=== PATIENT | male | born 1975 | race Two or more races ===

== ENCOUNTER 2020-12-13 14:25 | Outpatient (REF) | payer OTHER, SELFPAY ==
[2020-12-13 14:59] LABS: MANUAL DIFF FLAG NO
[2020-12-13 15:03] LABS: Basophils Percent Auto 0.2 % (0-2); Eosinophils Absolute Auto 0.2 X10*3/uL (0.0-0.4); Eosinophils Percent Auto 1.9 % (0-4); Hematocrit 37.5 % (42-52); Hemoglobin 11.9 g/dl (14.0-18.0); Imm Gran Abs Auto 0.02 X10*3/uL (0.00-0.03); Imm Gran Pct Auto 0.2 % (0.0-0.4); Lymphocytes Absolute Auto 2.2 X10*3/uL (1.2-4.9); Lymphocytes Percent Auto 22.9 % (20-40); Mean Corpuscular HGB Conc 31.7 g/dl (31.0-36.0); Mean Corpuscular Volume 88.2 fL (80-98); Mean Platelet Volume 8.7 fL (9.4-12.4); Monocytes Absolute Auto 0.7 X10*3/uL (0.1-1.2); Monocytes Percent Auto 7.7 % (2-11); Neutrophils Absolute Auto 6.3 X10*3/uL (2.0-8.3); Neutrophils Percent Auto 67.1 % (45-73); Platelet Count 444 X10*3/uL (160-400); Red Blood Count 4.25 X10*6/uL (4.60-5.80); Red Cell Distribution Width 13.4 % (11.0-16.0); White Blood Count 9.4 X10*3/uL (4.8-10.8)
[2020-12-13 17:38] LABS: Alanine Aminotransferase 23 U/L (0-40); Albumin Level 4.3 g/dL (3.5-5.0); Alkaline Phosphatase 101 U/L (39-117); Anion Gap 13 (12-20); Aspartate Amino Transferase 17 U/L (5-37); Bilirubin Direct < 0.2 mg/dL (0.0-0.5); Bilirubin Total 0.2 mg/dL (0.0-1.0); Blood Urea Nitrogen 13 mg/dL (9-16); Calcium 9.3 mg/dL (8.4-10.2); Carbon Dioxide 29 mmol/L (22-29); Chloride 101 mmol/L (96-108); Cholesterol 136 mg/dL; Estimated Glomerular Filt Rate > 60; Glucose Random 91 mg/dL (60-115); HDL Cholesterol 42 mg/dL; LDL Cholesterol Calculated 68 mg/dl; Potassium 4.5 mmol/L (3.3-5.1); Sodium 138 mmol/L (135-145); Total Protein 7.5 g/dL (6.5-8.0); Triglycerides 131 mg/dL
[2020-12-13 17:41] LABS: Estimated Average Glucose 103 mg/dL; Hemoglobin A1c % 5.2 %
[2020-12-13 17:52] LABS: Free T4 (Free Thyroxine) 0.87 ng/dL (0.71-1.85); Prostate Specific Antigen 0.21 ng/mL (<0.05-4.0)
== END 2020-12-13 14:26 | disposition home or self-care (01) ==
LOC: HO.LAB 14:25
PROVIDERS: PCP Internal Medicine; Visit Provider Internal Medicine
DX: Z00.00 Encounter for general adult medical examination without abnormal findings (principal)
CPT/HCPCS: 36415; 80048; 80061; 80076; 83036; 84153; 84439; 84443; 85025

== ENCOUNTER 2023-06-17 16:22 | Outpatient (REF) | payer OTHER, SELFPAY ==
[2023-06-21 17:34] LABS: HIV RNA PCR Qn Copies Not Detected Copies/mL; HIV RNA PCR Qn Log Copies Not Detected Log cps/mL
== END 2023-06-17 16:23 | disposition home or self-care (01) ==
LOC: HO.CHCLDS 16:22
PROVIDERS: Visit Provider Internal Medicine
DX: Z00.00 Encounter for general adult medical examination without abnormal findings (principal); E78.5 Hyperlipidemia, unspecified; F20.0 Paranoid schizophrenia; E55.9 Vitamin D deficiency, unspecified
CPT/HCPCS: 36415; 80053; 80061; 83036; 84443; 85025; 86803; 87536; 87900

== ENCOUNTER 2024-05-28 22:16 | Emergency (ER) | payer OTHER, SELFPAY ==
[2024-05-28 22:23] VITALS: BP 130/72; PULSE 109; O2SAT 96
[2024-05-28 22:32] VITALS: BP 105/69; PULSE 75; RESP 16; TEMP 37.3; O2SAT 99; BMI 32.1
[2024-05-28 23:00] LABS: Appearance Urine Clear; Color Urine Yellow; Glucose Urine UA Negative (Negative); Leukocyte Esterase Urine Trace (Negative); Nitrite Urine Negative (Negative); PH 6.5 (5.0-9.0); UMIC TRIGGER UA YES; Urine Blood Trace (Negative); Urine Ketones Negative (Negative); Urine Protein Negative (Neg-Trace)
[2024-05-28 23:05] LABS: Bacteria Urine None Seen (None Seen); Hyaline Casts Urine 0-2 /LPF (0-2); Squamous Epithelial Cell Urine 0-2 /HPF (0-2); WBC Urine 0-5 /HPF (0-5)
[2024-05-28 23:10] LABS: Amphetamine Screen Urine Not Detected (Not Detect); Barbiturates, Urine Not Detected (Not Detect); Benzodiazepines Screen Urine Not Detected (Not Detect); Buprenorphine Scr Not Detected (Not Detect); Cannabinoid Screen Urine Not Detected (Not Detect); Cocaine Screen Urine Not Detected (Not Detect); Fentanyl, urine Not Detected (Not Detect); Methadone Screen, Urine Not Detected (Not Detect); Opiate Screen Urine Not Detected (Not Detect); Oxycodone Screen Urine Not Detected (Not Detect); Phencyclidine Screen Urine Not Detected (Not Detect)
[2024-05-28 23:34] LABS: MANUAL DIFF FLAG NO
[2024-05-28 23:36] LABS: Basophils Absolute Auto 0.1 X10*3/uL (0.0-0.2); Basophils Percent Auto 0.6 % (0-2); Eosinophils Absolute Auto 0.3 X10*3/uL (0.0-0.4); Eosinophils Percent Auto 2.4 % (0-4); Hematocrit 34.9 % (42.0-52.0); Imm Gran Abs Auto 0.02 X10*3/uL (0.00-0.03); Imm Gran Pct Auto 0.2 % (0.0-0.4); Lymphocytes Absolute Auto 2.3 X10*3/uL (1.2-4.9); Lymphocytes Percent Auto 21.3 % (20-40); Mean Corpuscular HGB Conc 34.4 g/dl (31.0-36.0); Mean Corpuscular Hemoglobin 29.1 pg (27.0-33.0); Mean Corpuscular Volume 84.7 fL (80.0-98.0); Mean Platelet Volume 7.8 fL (9.4-12.4); Monocytes Absolute Auto 0.7 X10*3/uL (0.1-1.2); Monocytes Percent Auto 6.1 % (2-11); Neutrophils Absolute Auto 7.5 x10*3/uL (2.0-8.3); Neutrophils Percent Auto 69.4 % (45-73); Platelet Count 443 X10*3/uL (160-400); Red Blood Count 4.12 X10*6/uL (4.60-5.80); Red Cell Distribution Width 13.8 % (11.0-16.0); White Blood Count 10.8 X10*3/uL (4.8-10.8)
[2024-05-28 23:50] LABS: COVID-19 Test Negative (Negative); IDNOW Serial# 152EDE1D
[2024-05-28 23:58] LABS: Alanine Aminotransferase 10 U/L (0-40); Albumin Level 4.1 g/dL (3.5-5.0); Alkaline Phosphatase 108 U/L (39-117); Anion Gap 13 (12-20); Aspartate Amino Transferase 13 U/L (5-37); Bilirubin Total 0.3 mg/dL (0.0-1.0); Blood Urea Nitrogen 3 mg/dL (9-16); Calcium 9.5 mg/dL (8.4-10.2); Carbon Dioxide 27 mmol/L (22-29); Chloride 100 mmol/L (96-108); Creatinine Clr Calc Pharmacy 178.1; Estimated Glomerular Filt Rate > 60; Ethanol < 10 mg/dL; Glucose Random 85 mg/dL (60-115); Sodium 136 mmol/L (135-145); Total Protein 7.9 g/dL (6.5-8.0)
[2024-05-29 05:16] VITALS: BP 108/55; PULSE 54; RESP 16; TEMP 37.2; O2SAT 100
[2024-05-29 06:08] LABS: CT PCR NOT DETECTED (Not Detect.); NG PCR NOT DETECTED (Not Detect.)
--- NOTE | 2024-05-29 06:34 | ED_ITS ---
HPI - Psych General Chief Complaint: Psychiatric Symptoms Stated Complaint: Hallucinations Time Seen by Provider: 05/29/24 02:35 Source: patient and EMS Mode of arrival: EMS Limitations: no limitations History of Present Illness ED Provider: Dr. Roy HPI Narrative: Patient brought in by EMS. He is having auditory and short visual hallucinations, Feels that people are invisible to him and that they are stealing other peoples organs. He is not suicidal or homicidal, has been taking his medications, but feels that there are voices in his head. He is also concerned about STDs Onset (ago): day(s) Related Data Allergies Allergy/AdvReac Type Severity Reaction Status Date / Time No Known Allergies Allergy Verified 05/28/24 22:35 Review of Systems 2 Review of Systems: Yes all other systems are reviewed and are negative Neurologic: Denies Sensory deficit (Neuro) [facility] Social History Social History Smoked in Last 30 Days: Yes Use of substances other than those prescribed or required for medical reasons: No Advance Directives: No Advance Directives Information Provided: Yes Do you have a plan to hurt others: No Plan Physical Exam 2 Vital Signs: Vital Signs: Last Vital Signs Temp 98.9 F 05/29/24 05:16 Pulse 54 05/29/24 05:16 Resp 16 05/29/24 05:16 BP 108/55 L 05/29/24 05:16 Pulse Ox 100 05/29/24 05:16 O2 Del Method Room Air 05/29/24 05:16 BMI result Body Mass Index 32.1 Const: General: healthy appearing Nutritional Appearance: average body habitus Orientation/consciousness: oriented to person and patient oriented x3 Limitations: no limitations HEENT: Head: Yes normal to inspection Ears: external ears normal General nose exam: Normal external nose present Mouth: Normal oral and palatal mucosa present and oropharynx normal Throat: Yes posterior oropharynx normal Eyes: General: appearance normal, both eyes and all related structures Neck: Other: supple Neck: Yes normal visual inspection Chest: Chest palpation & inspection: normal inspection of the chest Resp: Auscultation: clear to auscultation bilaterally Cardio: Jugular venous distension: no JVD Rate: regular rate Rhythm: r egular rhythm Heart sounds: S1 normal heart sound present and S2 normal heart sound present GI: Inspection: Yes normal to inspection Palpation (GI): Soft to palpation, nontender and No hepatosplenomegaly present Auscultation: normal bowel sounds : General: Yes no CVA tenderness Back/Spine/Pelvis: Back: no CVA tenderness Skin: General skin exam: no rashes or lesions noted Neuro: General: oriented to person and patient oriented x3 Cranial nerves: Yes CN's II-XII intact bilaterally Motor exam (neuro): 5/5 motor strength present throughout Sensory Exam: No Sensory deficit (Neuro) Extrem: General: Yes normal to inspection Psych: Other: paranoid but calm Course Reevaluation(s) Reevaluation #1: seen by crisis they will admit Time: 06:39 Medical Decision Making Differential Diagnosis Differential Diagnoses: The differential diagnosis associated with the presentation includes (paranoid schizophrenia, bipolar disorder) Admission/Observation Consideration of admission/observation: Escalation of care including admission/observation considered (upon arrival patient considered for admission) Consult Healthcare Provider Management of the patient was discussed with: Behavioral Health Provider Lab Data 05/28/24 23:27 05/28/24 23:27 Labs: Lab Results 05/28/24 05/28/24 05/29/24 Range/Units 22:46 23:27 04:35 WBC 10.8 (4.8-10.8) X10*3/uL RBC 4.12 L (4.60-5.80) X10*6/uL Hgb 12.0 L (14.0-18.0) g/dl Hct 34.9 L (42.0-52.0) % MCV 84.7 (80.0-98.0) fL MCH 29.1 (27.0-33.0) pg MCHC 34.4 (31.0-36.0) g/dl RDW 13.8 (11.0-16.0) % Plt Count 443 H (160-400) X10*3/uL MPV 7.8 L (9.4-12.4) fL Immature Gran % (Auto) 0.2 (0.0-0.4) % Neut % (Auto) 69.4 (45-73) % Lymph % (Auto) 21.3 (20-40) % [place] % (Auto) 6.1 (2-11) % Eos % (Auto) 2.4 (0-4) % Baso % (Auto) 0.6 (0-2) % Lymph # (Auto) 2.3 (1.2-4.9) X10*3/uL [place] # (Auto) 0.7 (0.1-1.2) X10*3/uL Eos # (Auto) 0.3 (0.0-0.4) X10*3/uL Baso # (Auto) 0.1 (0.0-0.2) X10*3/uL Abs Immat Gran (auto) 0.02 (0.00-0.03) X10*3/uL Absolute Neuts (auto) 7.5 (2.0-8.3) x10*3/uL Absolute Nucleated RBC 0.000 (0.0-0.012) X10*3/uL Nucleated RBC % (auto) 0.0 (0.0-0.2) /100WBC Sodium 136 (135-145) mmol/L Potassium 4.0 (3.3-5.1) mmol/L Chloride 100 (96-108) mmol/L Carbon Dioxide 27 (22-29) mmol/L Anion Gap 13 (12-20) BUN 3 L (9-16) mg/dL Creatinine 0.63 (0.5-1.4) mg/dL Estim Creat Clear Calc 178.1 Estimated GFR > 60 Random Glucose 85 (60-115) mg/dL Calcium 9.5 (8.4-10.2) mg/dL Total Bilirubin 0.3 (0.0-1.0) mg/dL AST 13 (5-37) U/L ALT 10 (0-40) U/L Alkaline Phosphatase 108 (39-117) U/L Total Protein 7.9 (6.5-8.0) g/dL Albumin 4.1 (3.5-5.0) g/dL Urine Color Yellow Urine Appearance Clear Urine pH 6.5 (5.0-9.0) Ur Specific [place] 1.010 (1.005-1.025) Urine Protein Negative (Neg-Trace) mg/dL Urine Glucose (UA) Negative (Negative) mg/dL Urine Ketones Negative (Negative) mg/dL Urine Blood Trace H (Negative) Urine Nitrite Negative (Negative) Ur Leukocyte Esterase Trace H (Negative) Urine RBC 3-5 H (0-2) /HPF Urine WBC 0-5 (0-5) /HPF Ur Squamous Epith Cells 0-2 (0-2) /HPF Urine Bacteria None Seen (None Seen) Hyaline Casts 0-2 (0-2) /LPF Urine Opiates Screen Not Detected (Not Detect) Ur Buprenorphine Scrn Not Detected (Not Detect) ng/mL Ur Oxycodone Screen Not Detected (Not Detect) ng/mL Urine Methadone Screen Not Detected (Not Detect) ng/mL Urine Fentanyl Screen Not Detected (Not Detect) Ur Barbiturates Screen Not Detected (Not Detect) Ur Phencyclidine Scrn Not Detected (Not Detect) Ur Amphetamines Screen Not Detected (Not Detect) U Benzodiazepines Scrn Not Detected (Not Detect) Urine Cocaine Screen Not Detected (Not Detect) U Marijuana (THC) Screen Not Detected (Not Detect) Ethyl Alcohol < 10 mg/dL Chlam trachomat DNA PCR NOT DETECTED (Not Detect.) COVID-19 (ANDREI) Negative (Negative) COVID-19 Clin Com See Note N.gonorrhoeae DNA (PCR) NOT DETECTED (Not Detect.) Independent Historian Clinical information obtained from an independent historian. History obtained from or confirmed by: EMS Chronic Conditions Patient?s care impacted by: Other (psychiatric illness) Social Determinants Patient?s care significantly limited by Social Determinants of Health including: Low income Discharge Plan Discharge Clinical Impression: Chronic schizophrenia, Acute psychosis Patient Disposition: Still a Patient Interventions: [place]-Suicide Risk Severity Scale Last Done: 05/28/24 22:36 Print Language: Yoruba
--- NOTE | 2024-05-29 09:13 | PC.NURSE ---
Call to [facility] apartment office, spoke to Astrid [phone], med list to be faxed Pt is calm and cooperative. Does not appear to be responding to internal stimuli. Ate breakfast. Plan for IPLOC
--- NOTE | 2024-05-29 09:31 | MHC.CARE ---
Anita Villalobos- Hat Forming Machine Feeder of the [facility] program where Pt resides returned a phone call from the overnight CARE team clinician who assessed Pt. She was informed Pt is IPLOC and a bed search is being conducted. Her phone number is [phone] for any collateral information or updates.
--- NOTE | 2024-05-29 10:02 | PC.NURSE ---
Med list received by [facility], faxed to pharmacy
--- NOTE | 2024-05-29 11:15 | PC.NURSE ---
Addendum entered by Sepideh Orourek 05/29/24 11:33: CARE team continuing to recommend IPLOC after obtaining collateral from [facility] child welfare caseworker, Sec [address]. Original Note: pt requesting discharge, reminded that he was on a sec 12 for IPLOC, pt stated he has had good behavior during his stay. care team notified of pt request.
[2024-05-29 14:04] VITALS: BP 104/54; PULSE 74; RESP 17; O2SAT 99
--- NOTE | 2024-05-29 14:50 | PHA.MEDREC ---
Pharmacy Consult ? Medication Reconciliation Pharmacy has completed the medication reconciliation.
--- NOTE | 2024-05-29 19:18 | PC.NURSE ---
patient appears to remain asleep/resting at present respirations are even and unlabored patient appears in no distress.
[2024-05-29] MEDS: Ibuprofen 800 MG TABLET PO (20:30)
[2024-05-29] MEDS: risperiDONE 2 MG TABLET 4 MG PO (20:30)
[2024-05-29] MEDS: OXcarbazepine 300 MG TABLET PO (20:30)
[2024-05-29] MEDS: risperiDONE 1 MG TABLET PO (20:30)
[2024-05-29 20:38] VITALS: BP 123/79; PULSE 86; RESP 16; TEMP 36.6; O2SAT 97
[2024-05-30 05:08] VITALS: BP 105/51; PULSE 64; RESP 16; TEMP 36.8; O2SAT 98
--- NOTE | 2024-05-30 07:17 | PC.NURSE ---
Assumed care of patient at 0645, patient appears to be in no apparent distress this am, sitting upright in chair eating breakfast, offering no complaints to staff. Continue plan of care for inpatient bedsearch at this time
[2024-05-30] MEDS: risperiDONE 2 MG TABLET 4 MG PO ×2 (08:56→20:17)
[2024-05-30] MEDS: Benztropine Mesylate 0.5 MG TABLET PO (08:56)
[2024-05-30] MEDS: Atorvastatin Calcium 20 MG TABLET PO (08:56)
[2024-05-30] MEDS: Ibuprofen 800 MG TABLET PO ×2 (08:56→20:17)
[2024-05-30] MEDS: OXcarbazepine 300 MG TABLET PO ×2 (08:56→20:17)
[2024-05-30] MEDS: Docusate Sodium 100 MG CAPSULE PO (08:56)
[2024-05-30] MEDS: risperiDONE 1 MG TABLET PO ×2 (08:56→20:17)
[2024-05-30] MEDS: Loratadine 10 MG TABLET PO (08:56)
--- NOTE | 2024-05-30 13:20 | PC.NURSE ---
patient remains calm and cooperative, no apparent distress, occasionally pacing around BH pod, denies any issues and offers no complaints
[2024-05-30 16:07] VITALS: BP 106/60; PULSE 71; RESP 14; TEMP 37.1; O2SAT 100
--- NOTE | 2024-05-30 19:35 | PC.NURSE ---
patient appears to remain at rest presently relaxing in rear common area and making periodic phone calls, patient appears in no distress.
--- NOTE | 2024-05-30 19:47 | MHC.CARE ---
CARE team completed reassessment, disposition change from inpatient to [facility] level of care. Leeanne (special programs director) is aware, pt is agreeable. Consulted with PA regarding change.
--- NOTE | 2024-05-31 07:28 | PC.NURSE ---
Assumed care of patient at 0645. At this time the patient is eating breakfast in the milieu. No signs of distress observed.
[2024-05-31] MEDS: risperiDONE 2 MG TABLET 4 MG PO (08:11)
[2024-05-31] MEDS: Ibuprofen 800 MG TABLET PO (08:12)
[2024-05-31] MEDS: Loratadine 10 MG TABLET PO (08:12)
[2024-05-31] MEDS: OXcarbazepine 300 MG TABLET PO (08:12)
[2024-05-31] MEDS: Benztropine Mesylate 0.5 MG TABLET PO (08:13)
[2024-05-31] MEDS: risperiDONE 1 MG TABLET PO (08:13)
[2024-05-31 08:22] VITALS: BP 116/61; PULSE 74; RESP 14; O2SAT 100
[2024-05-31] MEDS: Atorvastatin Calcium 20 MG TABLET PO (08:56)
[2024-05-31] MEDS: Docusate Sodium 100 MG CAPSULE PO (08:56)
[2024-05-31 13:37] VITALS: BP 116/61; PULSE 74; RESP 14; TEMP 37.1; O2SAT 100
--- NOTE | 2024-05-31 13:42 | MHC.SL.SWA ---
Speech Pathologist Impression: Within Functional Limits Risk of Aspiration Due to: Acute psychosis Dysphasia Diet Status: Regular diet with thin liquids Liquid Consistency and Strategies for Safe Swallow: Liquid Intake Recommendation: Thin Liquid Intake Strategies: Drinking from bottled water is easier for pt per his report, vs drinking from hospital cup Solid Food Consistency: Dietary Recommendations: Regular Additional Modifications to Solid Foods: Oral Medication Intake: Whole with Liquid Please contact the pharmacy regarding appropriate crushable or liquid drug formulations that are available whenever modified delivery is recommended. Compensatory Strategies and Precautions to be Taken for Safe Swallow: Supervision While Eating and Drinking for Safe Swallow: None Needed Foods to Avoid: Swallowing Recommended Treatments: n/a Recommendation for Speech: no need for further METAL BONDING WORKER intervention at this time Combat Systems Operator Mine Warfare Clinican/Clinical Fellow: No Supervisory Statement: I have reviewed and agree with the student/clinical fellow's documentation: N/A Speech Language Pathologist: Reyna Nuñez M.S. [facility]-METAL BONDING WORKER
== END 2024-05-31 13:48 | disposition home or self-care (01) ==
PROVIDERS: Emergency Provider Emergency Medicine; PCP Family Medicine
DX: F25.9 Schizoaffective disorder, unspecified (principal); Z51.81 Encounter for therapeutic drug level monitoring; Z11.52 Encounter for screening for COVID-19; Z79.899 Other long term (current) drug therapy; Z20.2 Contact with and (suspected) exposure to infections with a predominantly sexual mode of transmission
CPT/HCPCS: 80053; 80307; 81001; 81003; 85025; 87491; 87591; 87635; 99285; S9485

== ENCOUNTER 2024-08-04 10:47 | Outpatient (AMB) | payer OTHER, SELFPAY ==
[2024-08-04 10:49] VITALS: BP 98/62; PULSE 80; BMI 27.2
--- NOTE | 2024-08-04 10:49 | A.OFFVIS_ITS ---
Vital Signs 08/04/24 10:49 Height 5 ft 11 in Weight 195 lb 5.273 oz BMI 27.2 BP 98/62 Blood Pressure Location Lt brachial Position Sitting Pulse 80 Intake Visit Reasons: pre colonoscopy Intake Note: New patient in office today for colonoscopy screening and dysphagia. CC: Patient c/o having a dry mouth and throat, having to clear his throat, and coughing a lot of phlegm. He also reports feeling like his esophagus is narrowing and he is having trouble swallowing and feeling like food gets stuck. Onset of symptoms about 3 years ago and progressively getting worse per patient. Realtime Captioner Required: No Accompanied by: Mother Allergies olanzapine [From Zyprexa] Allergy (Severe, Verified 08/04/24 11:17) Anaphylaxis No Known Drug Allergies Allergy (Unknown, Verified 08/04/24 11:17) none Seasonal Allergies Allergy (Unknown, Verified 08/04/24 11:17) none HPI HPI pre colonoscopy: Details: 49-year-old man healthcare for preprocedural meeting to discuss screening colonoscopy. He is referred by [facility]. PMX Asthma High cholesterol Schizophrenia dysphagia * SURGICAL HISTORY Pt unsure * ALLERGIES; NKDA * [facility] LABS: Laboratory Tests 05/28/24 23:27 WBC 10.8 Hgb 12.0 L Hct 34.9 L MCV 84.7 MCH 29.1 Plt Count 443 H Estimated GFR > 60 Total Bilirubin 0.3 AST 13 ALT 10 Alkaline Phosphatase 108 TODAY'S VISIT He is here today with his mother who is supportive. He is also having dysphagia of solids,mostly sticking in the area where the throat meets the area where the nasal congestion drains. But at times he also has foods get stuck further down in the sternal area. He will have to drink a lot of water to offset this. . 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 We will try a period of PPI to see if this influences his swallowing. He may be naive to anesthesia and sedation. He denies any cardiac or respiratory problems. No known ID problems. His mother has had colon polyps, no known esophageal or stomach cancer. We will try starting him on omeprazole 40 mg once a day see if this has any impact on the swallowing. Return office visit in 6 weeks [facility] Medical History Seasonal allergies Folliculitis Hypertriglyceridemia Surgical History No pertinent past surgical history Family History Family/Other Breast cancer Social History Alcohol intake: former Patient Tobacco Use Status: Current everyday Tobacco user Cigarettes Per Day: 30 Review of Systems Const Denies fatigue, Denies fever(s), Denies night sweats, Denies poor appetite and Denies weight loss ENT Reports Normal hearing present, Denies dental pain, Reports dysphagia, Denies hearing loss, Denies mouth pain, Denies odynophagia, Denies throat swelling, Denies tongue swelling and Reports other (Dentition adequate) Card Reports chest pain Resp Reports no additional complaints GI Details: Denies abdominal pain, Denies melena, Denies bloating, Denies hematochezia, Reports constipation, Denies GI cramping, Reports dysphagia, Denies excessive flatus, Denies early satiety, Denies heartburn, Denies diarrhea, Denies nausea, Denies odynophagia, Denies vomiting and Denies hematemesis Skin/Breast Details: Recurring folliculitis of the under arms Denies pruritus, Denies lesions, Denies rash and Denies jaundice Neuro Reports Normal hearing present, Denies Abnormal speech present and Reports memory loss Psych Reports memory loss Endo Denies fatigue Aller/Immun Denies throat swelling and Denies tongue swelling Physical Exam Vital Signs: Last Vital Signs Pulse 80 08/04/24 10:49 BP 98/62 08/04/24 10:49 BMI result Body Mass Index 27.2 Const General: cooperative, no acute distress, well developed and well groomed Nutritional Appearance: average body habitus and well nourished Orientation/consciousness: oriented to person, oriented to place and oriented to time Limitations: No language barrier and other limitations HEENT Head: Yes normocephalic and Yes atraumatic Eyes General: appearance normal, both eyes and all related structures Pupils: Equal, round and reactive pupils present Neck Neck: Yes normal visual inspection and Yes no lymphadenopathy Thyroid: Thyroid normal Resp Effort & Inspection: normal respiratory effort and able to speak in complete sentences Auscultation: clear to auscultation bilaterally Cardio Rate: regular rate Rhythm: regular rhythm Heart sounds: Normal, physiologic split S2 sound present Peripheral pulses: radial pulses present and posterior tibial pulses present GI Inspection: No distended and No Abdominal panniculus present Palpation (GI): Soft to palpation, nontender, no guarding, not rigid and No hepatosplenomegaly present Percussion: Yes normal to percussion Auscultation: normal bowel sounds Rectal Exam - Male: Yes deferred Skin Other: scarring under armpits prior dermal cysts General skin exam: no rashes or lesions noted, turgor normal, skin not dry, no jaundice, No spider nevi and no striae Rashes: no rashes Nails: normal Neuro General: oriented to person, oriented to place and oriented to time Cranial nerves: Yes Equal, round and reactive pupils present and Yes Normal hearing present Speech: No Abnormal speech present Extrem General: Yes normal to inspection, No clubbing, No cyanosis and No edema Psych Appearance: grossly normal and well kempt Mental Status: mental status grossly normal Speech and movement: Normal speech and movement present Affect: normal affect Attitude: cooperative Thought process: Circumstantial thought process present, not confabulating and Flight of ideas present Thought content: Normal thought content present Insight: Limited insight present (Psych) Judgement: Limited judgement present (Psych) Assessment & Plan Assessment & Plan (1) Pre-op examination: Code(s): Z01.818 - Encounter for other preprocedural examination Category: Medical (2) Dysphagia: Code(s): R13.10 - Dysphagia, unspecified Category: Medical (3) Family history of polyps in the colon: Comment: mother Code(s): Z83.719 - Family history of colon polyps, unspecified Category: Medical Plan He is here today with his mother who is supportive. He is also having dysphagia of solids,mostly sticking in the area where the throat meets the area where the nasal congestion drains. But at times he also has foods get stuck further down in the sternal area. He will have to drink a lot of water to offset this. . 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 We will try a period of PPI to see if this influences his swallowing. He may be naive to anesthesia and sedation. He denies any cardiac or respiratory problems. No known ID problems. His mother has had colon polyps, no known esophageal or stomach cancer. We will try starting him on omeprazole 40 mg once a day see if this has any impact on the swallowing. Return office visit in 6 weeks Orders: Orders EGD/Frederic Combo - GI Use Only Today R13.10 - Dysphagia, unspecified, Z01.818 - Encounter for other preprocedural examination FL barium swallow Today R13.10 - Dysphagia, unspecified, Z01.818 - Encounter for other preprocedural examination Medications: New omeprazole 40 mg PO DAILY 30 days 30 caps 6RF K21.9 - Gastro-esophageal reflux disease without esophagitis, R13.10 - Dysphagia, unspecified peg 3350-electrolytes 236-22.74-6.74 -5.86 gram (Golytely) until fecal effluent is clear; do not exceed a total volume of 2,000 mL 240 mL PO Q10M 1 day 4,000 mL 0RF Z12.11 - Encounter for screening for malignant neoplasm of colon bisacodyl (Dulcolax (bisacodyl)) 10 mg (2 x 5 mg) PO BEDTIME 2 days 4 tabs 0RF Coding Level of Care Code New Pt Level 3 (15348) Diagnoses Pre-op examination Z01.818 Dysphagia R13.10 Family history of polyps in the colon Z83.719
== END 2024-08-04 12:19 | disposition home or self-care (01) ==
PROVIDERS: Visit Provider Nurse Practitioner
DX: R13.10 Dysphagia, unspecified (principal); Z01.818 Encounter for other preprocedural examination; Z12.11 Encounter for screening for malignant neoplasm of colon; Z83.719 Family history of colon polyps, unspecified
CPT/HCPCS: 99203

== ENCOUNTER → 2024-08-04 10:47 | Outpatient (BNVA) | payer OTHER, SELFPAY | PROVIDERS: Visit Provider Nurse Practitioner | DX: Z01.818 Encounter for other preprocedural examination (principal); R13.10 Dysphagia, unspecified; Z83.719 Family history of colon polyps, unspecified | CPT/HCPCS: 99202 ==

== ENCOUNTER 2024-09-15 13:32 | Outpatient (AMB) | payer OTHER, SELFPAY ==
[2024-09-15 13:40] VITALS: BP 121/62; PULSE 90; BMI 27.1
--- NOTE | 2024-09-15 13:40 | MHC.OFFVIS ---
Vital Signs 09/15/24 13:40 Height 5 ft 11 in Weight 194 lb 3.636 oz BMI 27.1 BP 121/62 Blood Pressure Location Rt brachial Position Sitting Pulse 90 Intake Visit Reasons: 6 week follow up Intake Note: Nirav returns to in office follow up of dysphagia. CC: Per patient he states that he feels like he feels like he has a new esophagus and it feels different. He reports an episode of choking while at [employer] recently. He c/o nausea, dry mouth and some constipation today. Engineering Inspection Assistant Required: No Accompanied by: Staff from program Allergies olanzapine [From Zyprexa] Allergy (Severe, Verified 09/15/24 13:54) Anaphylaxis No Known Drug Allergies Allergy (Unknown, Verified 09/15/24 13:54) none Seasonal Allergies Allergy (Unknown, Verified 09/15/24 13:54) none HPI HPI 6 week follow up: Details: Assessment & Plan (1) Pre-op examination: Code(s): Z01.818 - Encounter for other preprocedural examination Category: Medical (2) Dysphagia: Code(s): R13.10 - Dysphagia, unspecified Category: Medical (3) Family history of polyps in the colon: Comment: mother Code(s): Z83.719 - Family history of colon polyps, unspecified Category: Medical Plan He is here today with his mother who is supportive. He is also having dysphagia of solids,mostly sticking in the area where the throat meets the area where the nasal congestion drains. But at times he also has foods get stuck further down in the sternal area. He will have to drink a lot of water to offset this. . 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 We will try a period of PPI to see if this influences his swallowing. He may be naive to anesthesia and sedation. He denies any cardiac or respiratory problems. No known ID problems. His mother has had colon polyps, no known esophageal or stomach cancer. We will try starting him on omeprazole 40 mg once a day see if this has any impact on the swallowing. Return office visit in 6 weeks Orders: Orders EGD/[place] Combo - GI Use Only Today R13.10 - Dysphagia, unspecified, Z01.818 - Encounter for other preprocedural examination [place] barium swallow Today R13.10 - Dysphagia, unspecified, Z01.818 - Encounter for other preprocedural examination Medications: New omeprazole 40 mg PO DAILY 30 days 30 caps 6RF K21.9 - Gastro-esophageal reflux disease without esophagitis, R13.10 - Dysphagia, unspecified peg 3350-electrolytes 236-22.74-6.74 -5.86 gram (Golytely) until fecal effluent is clear; do not exceed a total volume of 2,000 mL 240 mL PO Q10M 1 day 4,000 mL 0RF Z12.11 - Encounter for screening for malignant neoplasm of colon bisacodyl (Dulcolax (bisacodyl)) 10 mg (2 x 5 mg) PO BEDTIME 2 days 4 tabs 0RF EGD/COLONOSCOPY BIOPSY BARIUM SWALLOW TODAY'S VISIT He is coming down with a cold today and is c/o dry mouth and hands as well. I have to re direct him to hei PCP for this and I explain that I am the stomach doctor . He DOES feel that the omeprazole at 40mg is helping the swallowing. ROV 6 mos. PFSH Medical History Seasonal allergies Folliculitis Hypertriglyceridemia Surgical History No pertinent past surgical history Family History Family/Other Breast cancer Social History Alcohol intake: former Patient Tobacco Use Status: Current everyday Tobacco user Cigarettes Per Day: 30 Review of Systems Const Denies fatigue, Denies fever(s), Reports malaise, Denies night sweats, Denies poor appetite and Denies weight loss ENT Reports Normal hearing present, Denies dental pain, Reports dysphagia, Denies hearing loss, Denies mouth pain, Reports nasal discharge, Denies odynophagia, Reports sinus pressure, Denies throat swelling, Denies tongue swelling and Reports other (Dentition adequate) Card Reports no additional complaints Resp Reports cough GI Details: Denies abdominal pain, Denies melena, Denies bloating, Denies hematochezia, Denies constipation, Denies GI cramping, Reports dysphagia, Denies excessive flatus, Denies early satiety, Reports heartburn, Denies diarrhea, Denies nausea, Denies odynophagia, Denies vomiting and Denies hematemesis Skin/Breast Denies pruritus, Denies lesions, Denies rash and Denies jaundice Neuro Reports Normal hearing present and Denies Abnormal speech present Endo Denies fatigue Aller/Immun Denies throat swelling and Denies tongue swelling Physical Exam Vital Signs: Last Vital Signs Pulse 90 09/15/24 13:40 BP 121/62 09/15/24 13:40 BMI result Body Mass Index 27.1 Const General: cooperative, no acute distress, well developed and well groomed Nutritional Appearance: average body habitus and well nourished Orientation/consciousness: oriented to person, oriented to place and oriented to time Limitations: No language barrier and other limitations HEENT Head: Yes normocephalic and Yes atraumatic Eyes General: appearance normal, both eyes and all related structures Pupils: Equal, round and reactive pupils present Neck Neck: Yes normal visual inspection and Yes no lymphadenopathy Thyroid: Thyroid normal Resp Effort & Inspection: normal respiratory effort and able to speak in complete sentences Auscultation: rhonchi Cardio Rate: regular rate Rhythm: regular rhythm Heart sounds: Normal, physiologic split S2 sound present Peripheral pulses: radial pulses present and posterior tibial pulses present GI Inspection: No distended and No Abdominal panniculus present Palpation (GI): Soft to palpation, nontender, no guarding, not rigid and No hepatosplenomegaly present Percussion: Yes normal to percussion Auscultation: normal bowel sounds Rectal Exam - Male: Yes deferred Skin General skin exam: no rashes or lesions noted, turgor normal, skin not dry, no jaundice, No spider nevi and no striae Rashes: no rashes Nails: normal Neuro General: oriented to person, oriented to place and oriented to time Cranial nerves: Yes Equal, round and reactive pupils present and Yes Normal hearing present Speech: No Abnormal speech present Extrem General: Yes normal to inspection, No clubbing, No cyanosis and No edema Psych Appearance: grossly normal and well kempt Mental Status: mental status grossly normal Speech and movement: Normal speech and movement present Affect: normal affect Attitude: cooperative Thought process: Normal thought process present and not confabulating Thought content: Normal thought content present Insight: Limited insight present (Psych) Judgement: Limited judgement present (Psych) Assessment & Plan Assessment & Plan (1) GERD (gastroesophageal reflux disease): Code(s): K21.9 - Gastro-esophageal reflux disease without esophagitis Category: Medical (2) Dysphagia: Code(s): R13.10 - Dysphagia, unspecified Category: Medical (3) Family history of polyps in the colon: Comment: mother Code(s): Z83.719 - Family history of colon polyps, unspecified Category: Medical Plan He is coming down with a cold today and is c/o dry mouth and hands as well. I have to re direct him to hei PCP for this and I explain that I am the stomach doctor . He DOES feel that the omeprazole at 40mg is helping the swallowing. ROV 6 mos. EGD/COLONOSCOPY BIOPSY BARIUM SWALLOW Coding Level of Care Code Est Pt Level 3 (87911) Diagnoses GERD (gastroesophageal reflux disease) K21.9 Dysphagia R13.10 Family history of polyps in the colon Z83.713
== END 2024-09-15 14:14 | disposition home or self-care (01) ==
PROVIDERS: Visit Provider Nurse Practitioner
DX: K21.9 Gastro-esophageal reflux disease without esophagitis (principal); R13.10 Dysphagia, unspecified; Z83.719 Family history of colon polyps, unspecified
CPT/HCPCS: 99213

== ENCOUNTER → 2024-09-15 13:32 | Outpatient (BNVA) | payer OTHER, SELFPAY | PROVIDERS: Visit Provider Nurse Practitioner | DX: K21.9 Gastro-esophageal reflux disease without esophagitis (principal); R13.10 Dysphagia, unspecified; Z83.719 Family history of colon polyps, unspecified | CPT/HCPCS: 99212 ==

== ENCOUNTER 2025-02-10 08:03 | Day surgery (SDC) | payer OTHER, SELFPAY ==
--- OUTSIDE RECORDS SUMMARY | 2025-01-28 13:44 | XMS_ITS | Encounter Summary ---
Author Organization [employer] Address [address] [place] [address] Care Team Providers Care Quality Control Clerk Name Role Phone Los Edward MD Primary Care Prov ider Reason for Visit * Reason Comments Med Refill Encounter Details Date Type Department Care Team ([facility] Contact Info) Description 01/27/2025 Refill [facility] PEDS [address], [place] [phone] Vivi Ya MD [address] [place] [address] Mixed hyperlipidemia Social History Tobacco Use Types Packs/Day Years Used Date Smoking Tobacco: Never Assessed Depression Answer Date Recorded Patient Health Questionnaire-9 Score 0 02/10/2024 Patient Health Questionnaire-9 Score 0 02/10/2024 Last PHQ-9: Questionnaire Data Not on file 0 02/10/2024 Housing Stability Answer Date Recorded What is your housing situation today? I have julianne peralta 02/10/[address] you li ve. Do you have problems with any of the following? None of the above 02/10/2024 Food Insecurity Answer Date Recorded Within the past 12 months, y ou worried that your food would run out before you got money to buy more: Never True 02/10/2024 Within the past 12 months,th e food you bought just didn't last and you didn't have enough money to get more: Never True 12/2023 Transportation Answer Date Recorded In the past 12 months, has l ack of transportation kept you from medical appts, meetings, work or from getting things needed for daily living? No 02/10/2024 Utilities Answer Date Recorded In the past 12 months, has t he electric, gas, oil or water company threatened to shut off services in your home? No 02/10/2024 Depression Answer Date Recorded Patient Health Questionnaire-2 Score 0 02/10/2024 Sex and Gender Information Value Date Recorded Sex Assigned at Male 07/08/2022 10:23 AM EDT Legal Sex Male 10:23 AM EDT Gender Identity Male 07/08/2022 10:23 AM EDT Sexual Orientation Straight 07/08/2022 10 :23 AM EDT documented as of this encounter Plan of Treatment Upcoming Encounters Date Type Department Care Team (Late st Contact Info) Description 03/17/2025 3:15 PM EDT Office Visit [facility] [address] [place] [address] Los Edward MD [address] [place] [address] documented as of this encounter Visit Diagnoses Diagnosis Mixed hyperlipidemia documented in this encounter Additional Health Concerns Assessment Noted Time PHQ-9 Depression Total Score: 0 02/10/20 24 2:22 PM EDT documented as of this encounter Care Teams Quality Control Clerk Relationship Specialty Start Date End Date Los Edward MD [address] [place] [address] PCP - General Internal Medicine 02/06/20 documented as of this encounter
[2025-02-08 14:22] VITALS: BMI 27.1
--- NOTE | 2025-02-09 11:38 | HO.ANESPROP2 ---
Documented by User: Stacey Barbosa NP 02/09/25 11:38 HPI - Anesthesia Eval Consult details Narrative: 49yo M for Upper Endoscopy and Colonoscopy [facility] Active Problems Active Problems: All Active Problems Constipation (Acute) Schizophrenia (Acute) Family history of polyps in the colon (Acute) Dysphagia (Acute) GERD (gastroesophageal reflux disease) (Acute) Pre-op examination (Acute) Past Medical History Medical History Schizophrenia Dysphagia GERD (gastroesophageal reflux disease) Seasonal allergies Folliculitis Hypertriglyceridemia Family History Family History Family/Other Breast cancer Surgical History Surgical History No pertinent past surgical history Social History Social History Alcohol intake: former Patient Tobacco Use Status: Current everyday Tobacco user Tobacco use type: Cigarette Cigarettes Per Day: 30 Second Hand Smoke Exposure: No Use of substances other than those prescribed or required for medical reasons: No Have you been hit, kicked, punched, or otherwise hurt by someone within the past year? If so, by whom?: No Are you DNR?: No Advance Directives: No Advance Directives Information Provided: Yes Advance Directives on File: No Poor oral hygiene: No Meds Allergies Allergy/AdvReac Type Severity Reaction Status Date / Time olanzapine [From Zyprexa] Allergy Severe Anaphylaxis Verified 09/15/24 13:54 Seasonal Allergies Allergy Unknown Unknown Verified 02/08/25 14:20 Home Medications ?Medication ?Instructions ?Recorded ?Confirmed ?Last Taken ?Type atorvastatin 20 mg tablet 20 mg PO DAILY 05/29/24 02/10/25 02/10/25 History benztropine 0.5 mg tablet 0.5 mg PO DAILY 05/29/24 02/10/25 02/10/25 History docusate sodium 100 mg capsule 100 mg PO DAILY 05/29/24 02/10/25 Unknown History ibuprofen 800 mg tablet 800 mg PO TID PRN Pain 05/29/24 02/10/25 Unknown History loratadine 10 mg tablet 10 mg PO DAILY 05/29/24 02/10/25 02/10/25 History oxcarbazepine 300 mg tablet 300 mg PO BID 05/29/24 02/10/25 02/10/25 History risperidone 1 mg tablet 1 mg PO BID 05/29/24 02/10/25 02/10/25 History risperidone 4 mg tablet 4 mg PO BID 05/29/24 02/10/25 02/10/25 History albuterol sulfate 90 mcg/actuation 1 inh inhalation QID 08/04/24 02/10/25 Unknown History aerosol inhaler betamethasone dipropionate 0.05 % 1 appl topical DAILY PRN Skin 08/04/24 02/10/25 Unknown History topical cream Irritation emollient (Vanicream topical) 1 appl topical DAILY 08/04/24 02/10/25 02/10/25 History Exam Height,Weight and Vital Signs: Height 5 ft 11 in Weight 87.997 kg Assessment and Plan Assessment Anesthesia Assessment: Chart Reviewed Documented by User: Zohreh Golden MD 02/10/25 09:14 [facility] Past Medical History Medical History Schizophrenia Dysphagia GERD (gastroesophageal reflux disease) Seasonal allergies Folliculitis Hypertriglyceridemia Family History Family History Family/Other Breast cancer Surgical History Surgical History No pertinent past surgical history History of Problems with Anesthesia: No Social History Social History Alcohol intake: former Patient Tobacco Use Status: Current everyday Tobacco user Tobacco use type: Cigarette Cigarettes Per Day: 30 Second Hand Smoke Exposure: No Use of substances other than those prescribed or required for medical reasons: No Have you been hit, kicked, punched, or otherwise hurt by someone within the past year? If so, by whom?: No Are you DNR?: No Advance Directives: No Advance Directives Information Provided: Yes Advance Directives on File: No Poor oral hygiene: No Meds Allergies Allergy/AdvReac Type Severity Reaction Status Date / Time olanzapine [From Zyprexa] Allergy Severe Anaphylaxis Verified 09/15/24 13:54 Seasonal Allergies Allergy Unknown Unknown Verified 02/08/25 14:20 Home Medications ?Medication ?Instructions ?Recorded ?Confirmed ?Last Taken ?Type atorvastatin 20 mg tablet 20 mg PO DAILY 05/29/24 02/10/25 02/10/25 History benztropine 0.5 mg tablet 0.5 mg PO DAILY 05/29/24 02/10/25 02/10/25 History docusate sodium 100 mg capsule 100 mg PO DAILY 05/29/24 02/10/25 Unknown History ibuprofen 800 mg tablet 800 mg PO TID PRN Pain 05/29/24 02/10/25 Unknown History loratadine 10 mg tablet 10 mg PO DAILY 05/29/24 02/10/25 02/10/25 History oxcarbazepine 300 mg tablet 300 mg PO BID 05/29/24 02/10/25 02/10/25 History risperidone 1 mg tablet 1 mg PO BID 05/29/24 02/10/25 02/10/25 History risperidone 4 mg tablet 4 mg PO BID 05/29/24 02/10/25 02/10/25 History albuterol sulfate 90 mcg/actuation 1 inh inhalation QID 08/04/24 02/10/25 Unknown History aerosol inhaler betamethasone dipropionate 0.05 % 1 appl topical DAILY PRN Skin 08/04/24 02/10/25 Unknown History topical cream Irritation emollient (Vanicream topical) 1 appl topical DAILY 08/04/24 02/10/25 02/10/25 History Exam Airway Mallampati Class: III TM Dist: >3cm Neck ROM: Full Loose/Missing/Broken Teeth: No Heart: RRR Lungs: CTA Assessment and Plan Assessment Anesthesia Assessment: Anesthesia Plan Discussed Final Anesthetic Review History of Problems with Anesthesia: No NPO: Yes ASA Class: II Final Preanesthetic Review: Meds/Allgs Chart Reviewed, Consent Obtained/Reviewed and Anes Risks/Benef Reviewed Patient Risk: Low Procedure Risk: Intermediate Anesthetic Plan Anesthetic Plan: MAC: Disposition: Standard PACU
[2025-02-10 08:39] VITALS: BP 132/70; PULSE 77; RESP 116; TEMP 36.4; O2SAT 98
[2025-02-10] MEDS: Lactated Ringers 1,000 ML 100 ML IVCONT (08:49)
--- NOTE | 2025-02-10 09:07 | P.HPSUR_ITS ---
Pre-Procedural Eval Section A - 24 Hr Update-Section A only Date of Service: 02/10/25 Section B - Complete if H&P > 30 days Chief Complaint: gerd,dysphagia,hx colon polyps Relevant Family History (Specify if Yes): Yes Relevant Social History: Tobacco Use Present Medications: see Short Stay Collaborative assessment Medical History: Significant History (Seasonal allergies Folliculitis Hypertriglyceridemia) History of Previous Operations: No relevant previous surgery Allergies: Allergies Allergy/AdvReac Type Severity Reaction Status Date / Time olanzapine [From Zyprexa] Allergy Severe Anaphylaxis Verified 09/15/24 13:54 Seasonal Allergies Allergy Unknown Unknown Verified 02/08/25 14:20 Review of Systems Sugical H&P ROS: Negative: Constitution, Cardiovascular, Respiratory, Neurological, Psychiatric, Hem-Onc, Allergic/Immunologic, Gastrointestinal, Gen itourinary, Musculoskeletal, Integumentary, Endocrine and Eyes/Ears/Nose/Throat Exam Surgical H&P Exam: Normal: HEENT, Normal: Heart, Normal: Lungs, Normal: Extremities, Normal: Abdomen, Normal: Skin and Normal: Neurological Plan Diagnosis/Plan: Unchanged I have reviewed the history and physical and performed a pertinent physical examination on my patient. No changes have occurred unless specified. Time Spent With Patient Time: Total time managing care of this patient today ____ minutes.
--- NOTE | 2025-02-10 09:46 | HO.OPN-COLON ---
Colonoscopy Operative Note Operative Note Date of Service: 02/10/25 Narrative: Operative Information Procedure Description: EGD, Colonoscopy Indication: screenig and dysphagia Anesthesia: MAC FLEXIBLE TRANSORAL UPPER GASTROINTESTINAL ENDOSCOPY AND COLONOSCOPY PROCEDURE NOTE UPPER ENDOSCOPY Consent: Indications for the procedure and potential complications of bleeding, perforation, reaction to medications and missed diagnosis were discussed with the patient and informed consent was obtained. Instrument: Olympus GIF H 190 J mid size upper endoscope Monitoring: Vital signs and clinical assessment, continuous EKG monitoring, Pulse oximetry, Carbon Dioxide monitoring and blood pressure monitoring were done throughout the procedure. Procedure: The patient was placed in the left lateral decubitis position and pre-procedure medications were administered and a bite block was placed. The endoscope was inserted into the mouth and advanced under direct vision to the third part of duodenum. A careful inspection was made as the upper endoscope was withdrawn including a retroflexed examination of the proximal stomach; Findings and interventions are described below. Findings: Larynx:normal Esophagus: GE junction at 35 cm, diaphragm hiatus at 38 cm, consistent with fixed hiatal henria 3 cm, with schatzki ring, dilated with balloon to 20 mm with tear seen also UES dilated no tear seen, Stomach: mild erythema. Biopsies were obtained. Grade 2 flap valve on retroflexed examination of the cardia. Duodenum: Normal bulb and descending duodenum, bx taken Intervention: Biopsies as noted above, balloon dilation COLONOSCOPY Instrument: Olympus variable stiffness pediatric scope 190L Colonoscopy Monitoring: Vital signs and clinical assessment, continuous EKG monitoring, Pulse oximetry, Carbon Dioxide monitoring and blood pressure monitoring were done throughout the procedure. Colon withdrawal time was 10 minutes. Procedure: The patient was placed in the left lateral decubitis position and pre-procedure medications were administered. After a digital rectal examination of the ano-rectum, the video colonoscope was inserted into the rectum and advanced through the colon to the cecum/TI. The colonoscope was slowly withdrawn in a retrograde panoramic fashion and the colon mucosa was carefully examined including a retroflexed view of the rectum. Findings and interventions are described below. Procedure Difficulty:moderate Findings: Terminal Ileum-normal, bx taken Cecum: patchy erythema and microabscesses Ascending Colon:patchy erythema and microabscesses Transverse Colon - mild erythema Descending Colon: patchy erythema and microabscesses Sigmoid Colon: patchy erythema and microabscesses Rectum: Retroflexion with small internal hemorrhoids, grade I, patchy erythema and microabscesses -worse than other areas -moderate Anorectum - normal Colon preparation: [place] Bowel Preparation Scale Right colon; 2 Transverse colon: 2 Left colon; 2 (0 = Unprepared colon segment with mucosa not seen due to solid stool that cannot be cleared. 1 = Portion of mucosa of the colon segment seen, but other areas of the colon segment not well seen due to staining, residual stool and/or opaque liquid. 2 = Minor amount of residual staining, small fragments of stool and/or opaque liquid, but mucosa of colon segment seen well. 3 = Entire mucosa of colon segment seen well with no residual staining, small fragments of stool or opaque liquid) Impression and Post Procedure Diagnosis: Endoscopy Findings: schatzki ring hiatal hernia gastritis Colonoscopy Findings: non specific colitis polyp internal hemorrhoids Plan: Await Pathology results Repeat Colonoscopy in 5 years if adenomatous polyp, or 10 yrs if hyperplastic or earlier if clinically indicated High fiber diet leaflet avoid straining at stool, epsom salts and sitz bath, anusol supps or cream w/u for IBD depending on bx and also check nsaid use Above findings were reviewed with the patient and relevant handouts were provided if indicated.
[2025-02-10 09:49] VITALS: BP 99/54; PULSE 90; RESP 12; TEMP 36.1; O2SAT 97
[2025-02-10 10:04] VITALS: BP 118/62; PULSE 86; RESP 16; TEMP 36.1; O2SAT 97
== END 2025-02-10 11:03 | disposition home or self-care (01) ==
PROVIDERS: Visit Provider Internal Medicine Gastroenterology
PROC: (CPT 45380; principal; 2025-02-10 09:50)
DX: Z12.11 Encounter for screening for malignant neoplasm of colon (principal); Z86.0101 Personal history of adenomatous and serrated colon polyps; Z83.719 Family history of colon polyps, unspecified; D12.8 Benign neoplasm of rectum; K64.0 First degree hemorrhoids; K59.04 Chronic idiopathic constipation; R13.10 Dysphagia, unspecified; K21.9 Gastro-esophageal reflux disease without esophagitis; K52.9 Noninfective gastroenteritis and colitis, unspecified; K22.2 Esophageal obstruction; K29.60 Other gastritis without bleeding; K44.9 Diaphragmatic hernia without obstruction or gangrene; E78.1 Pure hyperglyceridemia; F20.9 Schizophrenia, unspecified; J30.2 Other seasonal allergic rhinitis; L73.9 Follicular disorder, unspecified; Z79.1 Long term (current) use of non-steroidal anti-inflammatories (NSAID); Z79.899 Other long term (current) drug therapy; Z88.8 Allergy status to other drugs, medicaments and biological substances; F17.210 Nicotine dependence, cigarettes, uncomplicated
CPT/HCPCS: 45380; 43249; 43239; 88305; 88313; 88342; C1726; J2003; J2704

== ENCOUNTER → 2025-02-10 08:03 | Outpatient (BNV) | payer OTHER, SELFPAY | PROVIDERS: Visit Provider Internal Medicine Gastroenterology | DX: Z12.11 Encounter for screening for malignant neoplasm of colon (principal); K52.9 Noninfective gastroenteritis and colitis, unspecified; K64.0 First degree hemorrhoids; R13.10 Dysphagia, unspecified; K22.2 Esophageal obstruction; K29.70 Gastritis, unspecified, without bleeding | CPT/HCPCS: 43239; 43249; 45380 ==

== ENCOUNTER 2025-08-23 14:37 | Outpatient (REF) | payer OTHER, SELFPAY ==
--- OUTSIDE RECORDS SUMMARY | 2025-08-23 14:45 | XMS_ITS | Encounter Summary ---
Author Organization [employer] Address [address] [place] [address] [address], [place] [address] Care Team Providers Care Finishing Area Operator Name Role Phone Los Edward MD Primary Care Prov ider Reason for Referral * Consultation (Routine) - Authorized Specialty Diagnoses / Procedures Referred By Contac t Referred To Contact Diagnoses Flexural eczema Los Edward MD [address] [place] [address] Phone: tel: fax: Josh Franz [address] [place] [phone] Phone: tel: fax: Referral ID Status Reason Start Date Expiration Date Visits Requested Visits Authorized [id number] Authorized Specialty Services Required 5 08/23/2026 1 1 Encounter Details Date Type Department Care Team (Late st Contact Info) Description 08/23/2025 2:45 PM EST Office Visit [facility] CHC MED & PEDS [address] [place] [address] Los Edward MD [address], [place] [phone] Flexural eczema (Primary Dx) Social History Tobacco Use Types Packs/Day Years Used Date Smoking Tobacco: Every Day Cigarettes 1 36 Started: 09/08/1989 Passive Smoke Exposure: Current Smokeless Tobacco: Never Tobacco Cessation:Ready to Q uit: Not Asked; Counseling Given: Not Answered Depression Answer Date Recorded Patient Health Questionnaire-9 [...] AM EDT documented as of this encounter Last Filed Vital Signs Vital Sign Reading Time Taken Comments Blood Pressure 124/70 08/23/2025 2:48 PM EST Pulse 80 08/23/2025 2:48 PM EST Temperature 37.1 C (98.8 F) 08/23/2025 2:48 PM EST Respiratory Rate 20 08/23/2025 2:48 PM EST Oxygen Saturation - - Inhaled Oxygen Concentration - - Weight 104 kg (229 lb) 08/23/2025 2:48 PM EST Height - - Body Mass Index 32.86 03/17/2025 3:21 PM EDT documented in this encounter Progress Notes * Los Robbins MD - 08/23/2025 2:45 PM EST Subjective Patient ID: Nirav Hurley is a 50 y.o. male who presents for No chief complaint on file.. HPI Patient was seen on office for ER follow up after being found with bilateral hand eczema Review of Systems Constitutional: Negative for chills, fatigue and fever. Respiratory: Negative for cough, shortness of breath and wheezing. Cardiovascular: Negative for chest pain and palpitations. Objective Physical Exam Constitutional: Appearance: Normal appearance. Cardiovascular: Rate and Rhythm: Normal rate. Heart sounds: No murmur heard. Pulmonary: Effort: Pulmonary effort is normal. No respiratory distress. Breath sounds: No stridor. No wheezing or rhonchi. Neurological: General: No focal deficit present. Mental Status: He is alert and oriented to person, place, and time. Psychiatric: Mood and Affect: Mood normal. Behavior: Behavior normal. Assessment/Plan Problem List Items Addressed This Visit Eczema - Primary Will refer to dermatology, continue topical steroid, call back if not improving Relevant Orders Referral to Dermatology documented in this encounter Miscellaneous Notes * Assessment & Plan Note - Los Robbins MD - 08/23/2025 3:09 PM ESTAssociated Problem(s): Eczema Will refer to dermatology, continue topical steroid, call back if not improving documented in this encounter Plan of Treatment Scheduled Referrals Name Type Priority Associated Diagnoses Order Schedule Referral to Dermatology Outpatient Referral Routine Flexural eczema Expected: 08/23/2025 (Approximate), Expires: 08/23/2026 documented as of this encounter Visit Diagnoses Diagnosis Flexural eczema- Primary Other atopic dermatitis and related conditions documented in this encounter Additional Health Concerns Assessment Noted Time PHQ-9 Depression Total Score: 0 02/10/20 24 2:22 PM EDT documented as of this encounter Care Teams Finishing Area Operator Relationship Specialty Start Date End Date Los Edward MD [address] [place] [id number] PCP - General Internal Medicine 02/06/20 documented as of this encounter
[2025-08-23 18:12] LABS: MANUAL DIFF FLAG NO
[2025-08-23 18:23] LABS: Hematocrit 36.0 % (42.0-52.0); Hemoglobin 11.7 g/dl (14.0-18.0); Imm Gran Abs Auto 0.01 X10*3/uL (0.00-0.03); Imm Gran Pct Auto 0.2 % (0.0-0.4); Lymphocytes Absolute Auto 1.6 X10*3/uL (1.2-4.9); Mean Corpuscular HGB Conc 32.5 g/dl (31.0-36.0); Mean Corpuscular Hemoglobin 27.9 pg (27.0-33.0); Mean Corpuscular Volume 85.9 fL (80.0-98.0); NRBC Abs Auto 0.000 X10*3/uL (0.0-0.012); NRBC Pct Auto 0.0 /100WBC (0.0-0.2); Platelet Count 452 X10*3/uL (160-400); Red Blood Count 4.19 X10*6/uL (4.60-5.80); White Blood Count 5.8 X10*3/uL (4.8-10.8)
[2025-08-23 18:43] LABS: Alanine Aminotransferase 12 U/L (0-40); Albumin Level 4.3 g/dL (3.5-5.0); Alkaline Phosphatase 102 U/L (39-117); Anion Gap 13 (12-20); Aspartate Amino Transferase 26 U/L (5-37); Blood Urea Nitrogen 7 mg/dL (9-16); Calcium 9.1 mg/dL (8.4-10.2); Carbon Dioxide 29 mmol/L (22-29); Chloride 99 mmol/L (96-108); Cholesterol 131 mg/dL (<200); Estimated Glomerular Filt Rate > 60; HDL Cholesterol 53 mg/dL (>40); Potassium 4.0 mmol/L (3.3-5.1); Sodium 137 mmol/L (135-145); Total Protein 8.0 g/dL (6.5-8.0); Triglycerides 104 mg/dL (<150)
--- OUTSIDE RECORDS SUMMARY | 2025-08-23 18:54 | XMS_ITS | Clinical Summary ---
Author Organization [employer] Address [address] [facility] 7t [place] [address] Care Team Providers Care Pre Fabricator Name Role Phone Los Edward MD Primary Care Prov ider Allergies Active Allergy Reactions Criticality Noted Date Comments Penicillins Unknown 09/03/2018 Medications * This document contains information received from the source organization and may not represent a complete record from that organization. lactulose (Chronulac) 10 GM/15ML solution Take 30 mL by mouth at bed time. 10/05/19 20 Active albuterol (ProAir HFA) 108 (90 Base) MCG/ACT inhaler Inhale 2 puffs every 4 (four) hours. 10/05/19 20 Active benztropine (Cogentin) 0.5 MG tablet Take 1 tablet by mouth every 12 (twelve) hours. Active diphenhydrAMINE (BENADryl) 25 MG capsule Take 1 capsule by mouth if needed at bedtime. Active OXcarbazepine (Trileptal) 300 MG tablet Take 1 tablet by mouth every 12 (twelve) hours. Active risperiDONE (RisperDAL) 4 MG tablet Take 1 tablet by mouth every 12 (twelve) hours. Active triamcinolone (Kenalog) 0.5 % ointment Apply topically every 12 (twelve) hours. 12/12/19 21 Active betamethasone dipropionate 0.05 % cream Apply topically 2 times daily. 45 g 3 09/21/19 25 Active atorvastatin (Lipitor) 20 MG tabletIndications :Mixed hyperlipidemia TAKE 1 TABLET (20 MG) BY MOUTH EVERY MORNING 30 tablet 9 11/17/19 25 Active loratadine (Claritin) 10 MG tabletIndications :Seasonal allergies TAKE 1 TABLET BY MOUTH EVERY DAY 90 tablet 3 02/19/20 25 Active docusate sodium (Colace) 100 MG capsule TAKE 1 CAPSULE BY MOUTH EVERY MORNING 30 capsule 5 03/28/20 25 Active ibuprofen 800 MG tablet TAKE 1 TABLET (800 MG) BY MOUTH 3 TIMES DAILY. 90 tablet 08/12/20 25 Active omeprazole (PriLOSEC) [address] capsule Take 1 capsule by mouth Once per day. 07/28/20 25 Active risperiDONE (RisperDAL) 1 MG tablet Take 1 tablet by mouth 2 times daily. 07/28/20 25 Active ibuprofen 800 MG tablet TAKE 1 TABLET (800 MG) BY MOUTH 3 TIMES DAILY. 90 tablet 06/24/20 25 025 Discontinued Active Problems Problem Noted Date Diagnosed Date Screening for colon cancer 09/04/2023 Assessment & Plan (02/10/2024 2:48 PM EDT): Will refer for screening colon cancer Assessment & Plan (09/04/2023 8:16 PM EST): Will place gi consult for screening colonoscopy Eczema 07/23/2022 Assessment & Plan (08/23/2025 3:09 PM EST): Will refer to dermatology, continue topical steroid, call back if not improving Assessment & Plan (09/20/2024 8:13 PM EST): Will renew topical steroid, call back if not improving Asthma-chronic obstructive p ulmonary disease overlap syndrome (CMS/HCC) 10/30/2018 Assessment & Plan (03/20/2025 12:01 PM EDT): Continue rescue inhalers, call back if using it more than 2 times a week Assessment & Plan (02/10/2024 2:47 PM EDT): Controlled, not using inhaler >2 times a week, call back if using it more frequently Assessment & Plan (09/04/2023 8:13 PM EST): Controlled, on albuterol, no recent exacerbation episode, continue rescue inhaler as needed Hyperlipidemia 10/30/2018 Assessment & Plan (03/20/2025 11:59 AM EDT): New labs ordered for guidance of therapy, keep low cholesterol diet and exercise as tolerated Assessment & Plan (09/20/2024 8:14 PM EST): On atovastatin, pending blood work for guidance of therapy Assessment & Plan (02/10/2024 2:47 PM EDT): Will order new labs for guidance of therapy Assessment & Plan (09/04/2023 8:13 PM EST): On atorvastatin, will order new labs for guidance of therapy Paranoid schizophrenia (CMS/HCC) 10/30/2018 Assessment & Plan (03/20/2025 11:59 AM EDT): Followed by therapist and psych, no suicidal/homicidal ideas Assessment & Plan (09/04/2023 8:13 PM EST): Followed by psych, no suicidal/homicidal ideas Vitamin D deficiency 02/16/2015 Encounters * This document contains information received from the source organization and may not represent a complete record from that organization. Date Type Department Care Team Description 08/23/2025 2:45 PM EST Office Visit [facility] CHC MED & PEDS [address] [place] [address] Los Edward MD Flexural eczema (Primary Dx) 08/23/2025 Travel 08/10/2025 Refill [facility] MEDICINE [address] [place] [address] Los Edward MD 08/10/2025 Telephone [facility] CHC MED & PEDS [address] [place] [address] Los Edward MD Appointment Request 07/13/2025 Telephone [facility] CHC MED & PEDS [address] [place] [address] Los Edward MD 07/13/2025 Travel 07/12/2025 Telephone [facility] CHC MED & PEDS [address] [place] [address] Los Edward MD chart prep 06/22/2025 Refill [facility] MEDICINE [address] [place] [address] Los Edward MD from Last 3 Months Immunizations Immunization Administration Dates Next Due Influenza injectable quadrivalent preservative f ree 10/30/2018,08/27/2016 Tdap 10/30/2018 Social History Tobacco Use Types Packs/Day Years [...] Orientation Straight 07/08/2022 10 :23 AM EDT Last Filed Vital Signs Vital Sign Reading Time Taken Comments Blood Pressure 124/70 08/23/2025 2:48 PM EST Pulse 80 08/23/2025 2:48 PM EST Temperature 37.1 C (98.8 F) 08/23/2025 2:48 PM EST Respiratory Rate 20 08/23/2025 2:48 PM EST Oxygen Saturation 98% 03/17/2025 3:21 PM EDT Inhaled Oxygen Concentration - - Weight 104 kg (229 lb) 08/23/2025 2:48 PM EST Height 177.8 cm (5' 10 ) 03/17/2025 3:21 PM EDT Body Mass Index 32.86 03/17/2025 3:21 PM EDT Plan of Treatment Health Maintenance Due Date Last Done Comments CT Colonography 1977 FIT DNA/Cologuard 1977 FIT 1977 FOBT 1977 Sigmoidoscopy 1977 Disability Screening 1977 Alcohol/Substance Use Screening 1989 Family Planning (PISQ) 1992 Hepatitis B Vaccines (1 of 3 - 19+ 3-dose series) 1996 Pneumococcal Vaccine: Pediatrics (0 to 5 Years) and At-Risk Patients (6 to 49) Years (1 of 2 - PCV) 1996 Depression Screening 02/09/2025 02/10/2024, 02/10/2024 SDOH Screening 02/09/2025 02/10/2024 COVID-19 Vaccine (1 - 2024-2 6 season) 2025 Influenza Vaccine (#1) 2025 9, 08/27/2016 Tobacco Screening 08/23/2026 08/23/2025 Zoster Vaccines (1 of 2) 2027 Lipid Panel 06/17/2028 08/23/2025, 06/17/2023 DTaP/Tdap/Td Vaccines (2 - T d or Tdap) 10/30/2028 10/30/2018 HIV Screening 06/17/2033 Colonoscopy 02/10/2035 02/10/2025 Colorectal Cancer Screening 02/10/2035 RSV Patients and Patients Aged 60 years or older (1 - 1-dose 75+ series) 2052 Hepatitis C Screening Completed 06/17/2023 HIB Vaccines Aged Out No longer eligi ble based on patient's age to complete this topic HPV Vaccines Aged Out No longer eligi ble based on patient's age to complete this topic Hepatitis A Vaccines Aged Out No long er eligible based on patient's age to complete this topic IPV Vaccines Aged Out No longer eligi ble based on patient's age to complete this topic Meningococcal B Vaccine Aged Out No l onger eligible based on patient's age to complete this topic Meningococcal Vaccine Aged Out No yomaira melany eligible based on patient's age to complete this topic RSV under 20 months Aged Out No longe r eligible based on patient's age to complete this topic Rotavirus Vaccines Aged Out No longer eligible based on patient's age to complete this topic Procedures Procedure Name Priority Date/Time Associated Diagnosis Comments LIPID PANEL, STANDARD Routine 08/23/2025 2:40 PM EST Mixed hyperlipidemia COMPREHENSIVE METABOLIC PANEL Routine 08/23/2025 2:40 PM EST Mixed hyperlipidemia CBC WITH AUTO DIFFERENTIAL Routine 08/23/2025 2:40 PM EST Mixed hyperlipidemia HM COLONOSCOPY Routine 02/10/2025 HEPATITIS C AB W/REFL TO HCV RNA, QN, PCR Routine 06/17/2023 4:26 PM EDT Physical exam from Last 3 Months or Most Recently Relevant to Health Maintenance Results * (ABNORMAL) CBC auto differential (08/23/2025 2:40 PM EST) White Blood Count 5.8 4.8 - 10.8 X10*3/uL [facility] Red Blood Count 4.19(L) 4.60 - 5.80 X10*6/uL [facility] Hemoglobin 11.7(L) 14.0 - 18.0 g/dl [facility] Hematocrit 36.0(L) 42.0 - 52.0 % [facility] Mean Corpuscular Volume 85.9 80.0 - 98.0 fL [facility] Mean Corpuscular Hemoglobin 27.9 27.0 - 33.0 pg [facility] Mean Corpuscular HGB Conc 32.5 31.0 - 36.0 g/dl [facility] Red Cell Distribution Width 13.4 11.0 - 16.0 % [facility] Platelet Count 452(H) 160 - 400 X10*3/uL [facility] Mean Platelet Volume 8.5(L) 9.4 - 12.4 fL [facility] Neutrophils Percent Auto 57.5 45 - 73 % [facility] Imm Gran Pct Auto 0.2 0.0 - 0.4 % [facility] Lymphocytes Percent Auto 28.0 20 - 40 % [facility] Monocytes Percent Auto 9.6 2 - 11 % [facility] Eosinophils Percent Auto 4.0 0 - 4 % [facility] Basophils Percent Auto 0.7 0 - 2 % [facility] NRBC Pct Auto 0.0 0.0 - 0.2 /100WBC [facility] Neutrophils Absolute Auto 3.4 2.0 - 8.3 x10*3/uL [facility] Imm Gran Abs Auto 0.01 0.00 - 0.03 X10*3/uL [facility] Lymphocytes Absolute Auto 1.6 1.2 - 4.9 X10*3/uL [facility] Monocytes Absolute Auto 0.6 0.1 - 1.2 X10*3/uL [facility] Eosinophils Absolute Auto 0.2 0.0 - 0.4 X10*3/uL [facility] Basophils Absolute Auto 0.0 0.0 - 0.2 X10*3/uL [facility] NRBC Abs Auto 0.000 0.0 - 0.012 X10*3/uL [facility] Blood Venous blood specimen / Unknown 08/23/2025 2:40 PM EST 08/23/2025 6:09 PM EST us Los Robbins MD LAB BLOOD ORDERABL ES Final Result [facility] [address] [place] [address] [phone] * Hm Colonoscopy (02/10/2025) Colonoscopy Normal Normal Larry Provider HEALTH MAINTENANCE Final Result * Hepatitis C Antibody with Reflex to HCV, RNA, Quantitative, Real-Time PCR (06/17/2023 4:26 PM EDT) Hepatitis C Antibody Nonreactive Nonreactive [facility] Comment:Antibodies to HCV no t detected; does not exclude early acuteHCV infection. Blood Venous blood specimen / Unknown 06/17/2023 4:26 PM EDT 06/17/2023 5:18 PM EDT Los Robbins MD LAB BLOOD ORDERABL ES Final Result [facility] [address] [place] [address] [phone] from Last 3 Months or Most Recently Relevant to Health Maintenance Insurance [facility] < [address] [place] [id number] Care Teams Pre Fabricator Relationship Specialty Start Date End Date LutherLos Vera MD [address] [place] [address] JACQUELINE Carrillo [address] PCP - General Internal Medicine 02/06/20
--- OUTSIDE RECORDS SUMMARY | 2025-08-23 18:54 | XMS_ITS | Encounter Summary ---
Author Organization [employer] Address [address] [facility] 7 [place] [address] Care Team Providers Care Post Anesthesia Room Nurse Name Role Phone Los Edward MD Primary Care Prov ider Reason for Visit * Reason Onset Date Comments Appointment Request 08/10/2025 Encounter Details Date Type Department Care Team ([facility] Contact Info) Description 08/10/2025 Telephone [facility] CHC MED & PEDS [address] [place] [address] Los Edward MD [address] [place] [address] Appointment Request Social History Tobacco Use Types Packs/Day Years [...] AM EDT documented as of this encounter Miscellaneous Notes * Telephone Encounter - Rk Winston - 08/10/2025 11:41 AM EST Tc from Yelena at [facility] requesting to schedule pt a follow up apt as he was seen at an urgent carefor eczema flare up Contact at [phone] documented in this encounter Plan of Treatment Not on file documented as of this encounter Visit Diagnoses Not on filedocumented in this encounter Additional Health Concerns Assessment Noted Time PHQ-9 Depression Total Score: 0 02/10/20 24 2:22 PM EDT documented as of this encounter Care Teams Post Anesthesia Room Nurse Relationship Specialty Start Date End Date Los Edward MD [address] [place] [id number] PCP - General Internal Medicine 02/06/20 documented as of this encounter
--- OUTSIDE RECORDS SUMMARY | 2025-08-23 18:54 | XMS_ITS | Encounter Summary ---
Author Organization [employer] Address [address] [place] [address] 7 [place] [address] Care Team Providers Care Instructor Looping Name Role Phone Los Edward MD Primary Care Prov ider Encounter Details Date Type Department Care Team (Latest Contact Info) Description 01/13/2019 Abstract [facility] CONVERSIONS Dental, Provider, DDS Social History Tobacco Use Types Packs/Day Years Used Date Smoking Tobacco: Never Assessed Sex and Gender Information Value Date Recorded Sex Assigned at Male 07/08/2022 10:23 AM EDT Legal Sex Male 10:23 AM EDT Gender Identity Male 07/08/2022 10:23 AM EDT Sexual Orientation Straight 07/08/2022 10 :23 AM EDT documented as of this encounter Plan of Treatment Not on file documented as of this encounter Visit Diagnoses Not on filedocumented in this encounter Care Teams Instructor Looping Relationship Specialty Start Date End Date Los Edward MD [address] [facility] [place] [address] PCP - General Internal Medicine 02/06/20 documented as of this encounter
--- OUTSIDE RECORDS SUMMARY | 2025-08-23 18:54 | XMS_ITS | Encounter Summary ---
Author Organization [facility] [employer] Address [address] [facility] 7t [place] [address] Care Team Providers Care Roller Painter Name Role Phone Los Edward MD Primary Care Prov ider Encounter Details Date Type Department Care Team (Latest Contact Info) Description 08/23/2025 Travel Social History Tobacco Use Types Packs/Day Years Used Date Smoking Tobacco: Every Day Cigarettes 1 36 Started: 09/08/1989 Passive Smoke Exposure: Current Smokeless Tobacco: Never Depression Answer Date Recorded Patient Health Questionnaire-9 [...] documented as of this encounter Care Teams Roller Painter Relationship Specialty Start Date End Date Los Edward MD [address] [place] [id number] PCP - General Internal Medicine 02/06/20 documented as of this encounter
--- OUTSIDE RECORDS SUMMARY | 2025-08-23 18:54 | XMS_ITS | Encounter Summary ---
Author Organization [employer] Address [address] [facility] 7 [place] [address] Care Team Providers Care Executive Legal Secretary Name Role Phone Los Edward MD Primary Care Prov ider Reason for Visit * Reason Onset Date Comments Med Refill 08/23/2024 Encounter Details Date Type Department Care Team ([facility] Contact Info) Description 08/23/2024 Telephone [facility] MEDICINE [address] [place] [address] Los Edward MD [address] [place], [place] [phone] Med Refill Social History Tobacco Use Types Packs/Day Years [...] encounter Miscellaneous Notes * Telephone Encounter - Candy Avila LPN - 08/23/2024 12:04 PM EST Medication pended to PCP. * Telephone Encounter - Bre Matt - 08/23/2024 11:56 AM EST TC from pt requesting medication refill. Medications needing refill : - docusate sodium (Colace) 100 MG capsule To be sent to: [facility] [address] [place] [address] documented in this encounter Plan of Treatment Not on file documented as of this encounter Visit Diagnoses Not on filedocumented in this encounter Additional Health Concerns Assessment Noted Time PHQ-9 Depression Total Score: 0 02/10/20 24 2:22 PM EDT documented as of this encounter Care Teams Executive Legal Secretary Relationship Specialty Start Date End Date Los Edward MD [address] [place] [id number] PCP - General Internal Medicine 02/06/20 documented as of this encounter
--- OUTSIDE RECORDS SUMMARY | 2025-08-23 18:54 | XMS_ITS | Encounter Summary ---
Author Organization [employer] Address [address] [facility] 7t [place] [address] Care Team Providers Care Sugar Mill Worker Name Role Phone Los Edward MD Primary Care Prov ider Reason for Visit * Reason Comments Med Refill Encounter Details Date Type Department Care Team ([facility] Contact Info) Description 01/27/2025 Refill [facility] CHC MED & PEDS [address] [place], [place] [phone] Vivi Ya MD [address] [place] [address] Mixed hyperlipidemia Social History Tobacco Use Types Packs/Day Years Used Date Smoking Tobacco: Never Assessed Depression Answer Date Recorded Patient Health Questionnaire-9 Score 0 02/10/2024 Patient Health Questionnaire-9 Score 0 02/10/2024 Last PHQ-9: Questionnaire Data Not on file 0 02/10/2024 Housing Stability Answer Date Recorded What is your housing situation today? I have julianne prealta 02/10/[address] you li [...] documented as of this encounter Care Teams Sugar Mill Worker Relationship Specialty Start Date End Date Los Edward MD [address] [place] [id number] PCP - General Internal Medicine 02/06/20 documented as of this encounter
== END 2025-08-23 14:38 | disposition home or self-care (01) ==
LOC: HO.CHCLDS 14:37
PROVIDERS: Visit Provider Internal Medicine
DX: E78.2 Mixed hyperlipidemia (principal); E55.9 Vitamin D deficiency, unspecified; Z13.1 Encounter for screening for diabetes mellitus
CPT/HCPCS: 36415; 80053; 80061; 82306; 83036; 84443; 85025